=== PATIENT | female | born 1990 | race American Indian/Alaskan Native ===

== ENCOUNTER 2017-09-26 01:16 | Emergency (ER) | payer OTHER ==
[2017-09-26] MEDS ORDERED: Ketorolac 30 MG/ML SDV IM ONE (01:30)
--- NOTE | 2017-09-26 01:36 | EDM.PDOC ---
ED HPI GENERAL MEDICAL PROBLEM - General Chief Complaint: Back Pain or Injury Stated Complaint: BAD BACK PAIN [id number] Time Seen by Provider: 09/26/17 01:30 Source of Information: Reports: Patient History Limitations: Reports: No Limitations - History of Present Illness INITIAL COMMENTS - FREE TEXT/NARRATIVE: onset right TL area back pain thursday, aleve seem to help some but tonight got worse hard to move around. denies straining, denies urinary Sx. Right Lower Back Pain Score (Numeric/FACES): 6 - Related Data Allergies Allergy/AdvReac Type Severity Reaction Status Date / Time venom-honey bee Allergy Swelling Verified 12/20/15 19:46 [bee venom (honey bee)] Home Meds: Home Meds Albuterol [Ventolin HFA] 2 puff INH Q4H PRN 02/18/14 [History] Sertraline [Zoloft] 100 mg PO DAILY 12/20/15 [History] Past Medical History Respiratory History: Reports: Asthma Musculoskeletal History: Reports: Fracture Psychiatric History: Reports: Depression Dermatologic History: Reports: Eczema - Infectious Disease History Infectious Disease History: Reports: Chicken Pox - Past Surgical History HEENT Surgical History: Reports: Tonsillectomy ED ROS GENERAL - Review of Systems Review Of Systems: ROS reveals no pertinent complaints other than HPI. ED EXAM,LOWER BACK PAIN/INJURY - Physical Exam Exam: See Below Exam Limited By: No Limitations General Appearance: Alert, WD/WN, Mild Distress, Other (tearful) Ears: Hearing Grossly Normal Throat/Mouth: Normal Voice, No Airway Compromise Head: Atraumatic Neck: Non-Tender, Full Range of Motion Respiratory/Chest: No Respiratory Distress Cardiovascular: Regular Rate, Rhythm GI/Abdominal: Soft, Non-Tender Back Exam: Muscle Spasm, Paraspinal Tenderness, Other (left L3-4-5 without radiculitis, gait limited to pain) Neurological: Alert, No Motor/Sensory Deficits, Oriented x 3 Psychiatric: Tearful Skin Exam: Warm, Dry, Normal Color Lymphatic: No Adenopathy Course - Vital Signs Last Recorded V/S: Last Vital Signs Temp 35.7 C 09/26/17 01:28 Pulse 84 09/26/17 01:28 Resp 18 09/26/17 01:28 BP 156/117 H 09/26/17 01:28 Pulse Ox 100 09/26/17 01:28 - Orders/Labs/Meds Meds: Medications Discontinued Medications Generic Name Dose Route Start Last Admin Trade Name Chun PRN Reason Stop Dose Admin Ketorolac Tromethamine 30 mg 09/26/17 01:30 09/26/17 01:41 Toradol IM 09/26/17 01:31 30 mg ONETIME ONE Administration - Re-Assessments/Exams Free Text/Narrative Re-Assessment/Exam: 09/26/17 02:07 re-exam; s/p IM toradol = much better Departure - Departure Time of Disposition: 02:08 Disposition: Home, Self-Care 01 Condition: Good Clinical Impression: Lumbar paraspinal muscle spasm - Discharge Information Instructions: Muscle Cramps and Spasms, [id number] Forms: ED Department Discharge Additional Instructions: 1) avoid bending lifting straining next 4 days 2) try heat or ice to sore areas 3) see clinic for PHYSICAL THERAPY REFERRAL rx given; flexeril 10mg bid prn x 12
[2017-09-26 01:41] VITALS: BP 156/117
== END 2017-09-26 02:17 | disposition home or self-care (01) ==
LOC: DL.ED 01:16
DX: M62.830 Muscle spasm of back (principal); Z91.030 Bee allergy status; Z79.899 Other long term (current) drug therapy
CPT/HCPCS: 96372; 99283; J1885

== ENCOUNTER 2017-09-27 23:33 | Emergency (ER) | payer OTHER ==
[2017-09-27] MEDS ORDERED: Cyclobenzaprine 10 MG Tab PO ONE (23:34)
[2017-09-27 23:54] VITALS: BP 118/76
[2017-09-28] MEDS ORDERED: Ketorolac 30 MG/ML SDV IM ONE (00:03)
--- NOTE | 2017-09-28 00:11 | EDM.PDOC ---
ED HPI GENERAL MEDICAL PROBLEM - General Chief Complaint: Back Pain or Injury Stated Complaint: SEVERE BACK PAIN [id number] Time Seen by Provider: 09/28/17 00:04 Source of Information: Reports: Patient History Limitations: Reports: No Limitations - History of Present Illness INITIAL COMMENTS - FREE TEXT/NARRATIVE: here last night for same but unable to fill rx. 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 Right Lower Back Pain Score (Numeric/FACES): 9 - Related Data Allergies Allergy/AdvReac Type Severity Reaction Status Date / Time venom-honey bee Allergy Swelling Verified 12/20/15 19:46 [bee venom (honey bee)] Home Meds: Home Meds Albuterol [Ventolin HFA] 2 puff INH Q4H PRN 02/18/14 [History] Sertraline [Zoloft] 100 mg PO DAILY 12/20/15 [History] Past Medical History Respiratory History: Reports: Asthma Musculoskeletal History: Reports: Fracture Psychiatric History: Reports: Depression Dermatologic History: Reports: Eczema - Infectious Disease History Infectious Disease History: Reports: Chicken Pox - Past Surgical History HEENT Surgical History: Reports: Tonsillectomy Social & Family History - Tobacco Use Smoking Status *Q: Never Smoker - Caffeine Use Caffeine Use: Reports: Soda - Recreational Drug Use Recreational Drug Use: No ED ROS GENERAL - Review of Systems Review Of Systems: ROS reveals no pertinent complaints other than HPI. ED EXAM,LOWER BACK PAIN/INJURY - Physical Exam Exam: See Below Exam Limited By: No Limitations General Appearance: Alert, WD/WN, Mild Distress, Other (crying) Eye Exam: Bilateral Eye: PERRL (pupils ER @ 4mm) Ears: Hearing Grossly Normal Throat/Mouth: Normal Voice, No Airway Compromise Head: Atraumatic Neck: Non-Tender, Full Range of Motion Respiratory/Chest: No Respiratory Distress Cardiovascular: Regular Rate, Rhythm GI/Abdominal: Soft, Non-Tender Back Exam: Muscle Spasm, Paraspinal Tenderness, Other (L4-5-S1 without radiulitis) Neurological: Alert, No Motor/Sensory Deficits, Oriented x 3, Other (gait limited to pain) Psychiatric: Tearful Skin Exam: Warm, Dry, Normal Color Lymphatic: No Adenopathy Course - Vital Signs Last Recorded V/S: Last Vital Signs Temp Pulse 76 09/27/17 23:40 Resp 19 09/27/17 23:40 BP 118/76 09/27/17 23:40 Pulse Ox 100 09/27/17 23:40 - Orders/Labs/Meds Orders: Active Orders 24 hr Category Date Time Status Ketorolac [Toradol] Med 09/28/17 00:03 Once 30 mg IM ONETIME ONE Departure - Departure Time of Disposition: 00:13 Disposition: Home, Self-Care 01 Condition: Good Clinical Impression: Lumbar paraspinal muscle spasm - Discharge Information Additional Instructions: 1) avoid bending lifting straining 2) follow up at clinic - My Orders Last 24 Hours: My Active Orders 09/28/17 00:03 Ketorolac [Toradol] 30 mg IM ONETIME ONE - Assessment/Plan Last 24 Hours: My Active Orders 09/28/17 00:03 Ketorolac [Toradol] 30 mg IM ONETIME ONE
[2017-09-28] MEDS ORDERED: Cyclobenzaprine 10 MG Tab ONE (00:15)
[2017-09-28] MEDS ORDERED: Cyclobenzaprine 10 MG Tab PO ONE (00:54)
== END 2017-09-28 01:05 | disposition home or self-care (01) ==
LOC: DL.ED 23:33
DX: M62.830 Muscle spasm of back (principal); Z91.030 Bee allergy status; Z79.899 Other long term (current) drug therapy
CPT/HCPCS: 96372; 99283; A9270; J1885

== ENCOUNTER 2020-11-21 14:08 | Emergency (ER) | payer OTHER ==
[2020-11-21 14:30] VITALS: BP 148/77; PULSE 73
[2020-11-21 16:01] LABS: ANION GAP 13.9 mEq/L (7-13); CHLORIDE,CL 101 mmol/L (98-107); SODIUM,NA 141 mmol/L (136-145)
--- NOTE | 2020-11-21 17:09 | CR ---
PROCEDURE INFORMATION: Exam: XR Right Knee Exam date and time: 11/21/2020 4:31 PM Age: 30 years old Clinical indication: Pain; Knee; Right; Additional info: Right knee pain TECHNIQUE: Imaging protocol: XR Right knee. Views: 1 or 2 views. COMPARISON: No relevant prior studies available. FINDINGS: Bones/joints: Suboptimal lateral projection. Dislocation not excluded in setting of trauma. Mild degenerative changes seen. No displaced fracture. Soft tissues: Normal. IMPRESSION: Limited study. Dislocation not excluded. Follow-up imaging once the patient can tolerate the exam is recommended.
--- NOTE | 2020-11-21 17:10 | CR ---
PROCEDURE INFORMATION: Exam: XR Lumbosacral Spine Exam date and time: 11/21/2020 4:26 PM Age: 30 years old Clinical indication: Low back pain; Additional info: Low back pain, no known injury TECHNIQUE: Imaging protocol: XR of the lumbosacral spine. Views: 2 or 3 views. COMPARISON: No relevant prior studies available. FINDINGS: Bones/joints: Vertebral body heights are maintained. Mild multilevel degenerative disc disease and facet arthropathy. Large anterior osteophytes in the lower thoracic spine. Soft tissues: Unremarkable. IMPRESSION: Mild multilevel degenerative spondylopathy
--- NOTE | 2020-11-21 17:12 | CR ---
PROCEDURE INFORMATION: Exam: XR Left Hip Exam date and time: 11/21/2020 4:28 PM Age: 30 years old Clinical indication: Hip pain; Left hip; Additional info: Left hip pain TECHNIQUE: Imaging protocol: XR Left hip. Views: 2 or 3 views hip with pelvis when performed. COMPARISON: No relevant prior studies available. FINDINGS: Bones/joints: No fracture. No malalignment. Some mild degenerative changes are seen in the hip joints and SI joints. Soft tissues: Unremarkable. IMPRESSION: Early degenerative changes noted
--- NOTE | 2020-11-21 17:22 | EDM.PDOC ---
Scribed by Fabiana Jackson 11/21/20 1721 for Shola Tinajero MD ED HPI GENERAL MEDICAL PROBLEM - General Chief Complaint: Lower Extremity Injury/Pain Stated Complaint: SHARP SHOOTING PAINS IN LEGS Time Seen by Provider: 11/21/20 15:30 Source of Information: Reports: Patient History Limitations: Reports: No Limitations - History of Present Illness INITIAL COMMENTS - FREE TEXT/NARRATIVE: 30 y/o F c/o R knee pain, and Left hip pain that begins in the left buttocks and wraps around to the anterior thigh. Symptoms began this morning. Pt has had episodes where she has had pain in her shoulders for several days and then the pain will subside on its own and then she will develop pain in a wrist that again lasts days and then subsides. No hx of RA or other inflammatory diseases. Denies fever, cough, chills, drugs, etoh, recent trauma. Duration: Hour(s): Location: Reports: Lower Extremity, Left, Lower Extremity, Right Quality: Reports: Burning, Sharp Severity: Moderate Improves with: Reports: None Worsens with: Reports: None Associated Symptoms: Reports: No Other Symptoms - Related Data Allergies Allergy/AdvReac Type Severity Reaction Status Date / Time venom-honey bee Allergy Swelling Verified 12/20/15 19:46 [bee venom (honey bee)] Home Meds: Home Meds Albuterol [Ventolin HFA] 2 puff INH Q4H PRN 02/18/14 [History] Sertraline [Zoloft] 100 mg PO DAILY 12/20/15 [History] Past Medical History Respiratory History: Reports: Asthma Musculoskeletal History: Reports: Fracture Psychiatric History: Reports: Depression Dermatologic History: Reports: Eczema - Infectious Disease History Infectious Disease History: Reports: Chicken Pox - Past Surgical History HEENT Surgical History: Reports: Tonsillectomy Social & Family History - Tobacco Use Tobacco Use Status *Q: Unknown Ever Used Tobacco - Caffeine Use Caffeine Use: Reports: None Review of Systems - Review of Systems Review Of Systems: See Below ED EXAM, GENERAL - Physical Exam Exam: See Below Exam Limited By: No Limitations General Appearance: Alert Respiratory/Chest: No Respiratory Distress, Lungs Clear, Normal Breath Sounds, No Accessory Muscle Use, Chest Non-Tender Cardiovascular: Normal Peripheral Pulses, Regular Rate, Rhythm, No Edema, No Gallop, No JVD, No Murmur, No Rub Extremities: Normal Inspection, Other (tenderness over the L sacral illiac joint and anterior left thigh. Tenderness over the R knee with no obviou swelling redness or deformity) Course - Vital Signs Last Recorded V/S: Last Vital Signs Temp 97.2 F 11/21/20 14:29 Pulse 73 11/21/20 14:29 Resp 24 H 11/21/20 14:29 BP 148/77 H 11/21/20 14:29 Pulse Ox 98 11/21/20 14:29 - Orders/Labs/Meds Labs: Laboratory Tests 11/21/20 11/21/20 Range/Units 15:37 15:37 WBC 11.3 H (5.0-10.0) 10^3/uL RBC 5.29 (4.2-5.4) 10^6/uL Hgb 14.4 (12.0-16.0) g/dL Hct 45.6 (37.0-47.0) % MCV 86.2 D (80-100) fL MCH 27.2 (27.0-34.0) pg MCHC 31.6 L (33.0-35.0) g/dL Plt Count 342 (150-450) 10^3/uL Neut % (Auto) 79.6 H (42.2-75.2) % Lymph % (Auto) 13.9 L (20.5-50.1) % [place] % (Auto) 4.6 (2-8) % Eos % (Auto) 1.7 (1.0-3.0) % Baso % (Auto) 0.2 (0.0-1.0) % Sodium 141 (136-145) mmol/L Potassium 3.9 (3.5-5.1) mmol/L Chloride 101 (98-107) mmol/L Carbon Dioxide 30 (21-32) mmol/L Anion Gap 13.9 H (7-13) mEq/L BUN 9 (7-18) mg/dL Creatinine 0.78 (0.55-1.02) mg/dL Est Cr Clr Drug Dosing 111.22 mL/min Estimated GFR (MDRD) > 60 BUN/Creatinine Ratio 11.5 (No establ ref range) Glucose 97 (70-99) mg/dL Calcium 8.5 (8.5-10.1) mg/dL Total Bilirubin 0.5 (0.2-1.0) mg/dL AST 20 (15-37) U/L ALT 42 (14-59) U/L Alkaline Phosphatase 82 (46-116) U/L C-Reactive Protein 5.2 H (0.0-0.9) mg/dL Total Protein 7.8 (6.4-8.2) g/dL Albumin 3.1 L (3.4-5.0) g/dL Globulin 4.7 Albumin/Globulin Ratio 0.66 HCG, Qual Negative Departure - Departure Time of Disposition: 17:19 Disposition: Home, Self-Care 01 Condition: Good Clinical Impression: Arthralgia Qualifiers: Joint pain location: other joint Qualified Code(s): M25.59 - Pain in other specified joint - Discharge Information *PRESCRIPTION DRUG MONITORING PROGRAM REVIEWED*: Not Applicable *COPY OF PRESCRIPTION DRUG MONITORING REPORT IN PATIENT SPENCER: Not Applicable Instructions: Joint Pain, [id number] Forms: ED Department Discharge Additional Instructions: Rx: Prednisone 20mg Follow up in clinic next week and inform your doctor that your CRP lab was elevated at 5.2. Ask your doctor about a rheumatologic work up. Sepsis Event Note (ED) - Focused Exam Vital Signs: Vital Signs Temp Pulse Resp BP Pulse Ox 11/21/20 14:29 97.2 F 73 24 H 148/77 H 98 I have read and agree with the documentation that has been completed regarding this visit. By signing this record, I attest that the documentation was completed in my physical presence and is an accurate record of the encounter.
== END 2020-11-21 17:33 | disposition home or self-care (01) ==
LOC: DL.ED 14:08
DX: M25.561 Pain in right knee (principal); M79.652 Pain in left thigh; M53.3 Sacrococcygeal disorders, not elsewhere classified; Z91.030 Bee allergy status
CPT/HCPCS: 36415; 72100; 73560-RT; 80053; 84703; 85025; 86140; 99283-25; 99284

== ENCOUNTER 2020-11-21 22:37 | Emergency (ER) | payer OTHER ==
[2020-11-21 23:19] VITALS: BP 128/75; PULSE 77
[2020-11-22] MEDS ORDERED: Ketorolac 30 MG/ML SDV IM ONE (00:45)
--- NOTE | 2020-11-22 00:54 | EDM.PDOC ---
ED HPI GENERAL MEDICAL PROBLEM - General Chief Complaint: Lower Extremity Injury/Pain Stated Complaint: SHARP PAIN IN LEGS Time Seen by Provider: 11/22/20 00:40 Source of Information: Reports: Patient History Limitations: Reports: No Limitations - History of Present Illness INITIAL COMMENTS - FREE TEXT/NARRATIVE: This 30 yo female patient reports to the ED with continued left lateral hip and thigh pain. The patient reports she has been seen in the ED yesterday with similar symptoms. The patient was started on Prednisone and took ibuprofen last night at about 1800 with no symptom improvement. The patient reports she attempted to get an appointment with her primary care facility, but was not able to get an appointment until Thursday. The patient reports her pain is currently a "burning", "sharp" pain to her left lateral hip and thigh. 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(s) Left Upper Leg Pain Score (Numeric/FACES): 9 - Related Data Allergies Allergy/AdvReac Type Severity Reaction Status Date / Time venom-honey bee Allergy Swelling Verified 11/21/20 23:24 [bee venom (honey bee)] Home Meds: Home Meds Albuterol [Ventolin HFA] 2 puff INH Q4H PRN 02/18/14 [History] Ibuprofen 200 mg PO ASDIRECTED PRN 11/21/20 [History] predniSONE [Prednisone] 20 mg PO TID 11/21/20 [History] Past Medical History Respiratory History: Reports: Asthma Musculoskeletal History: Reports: Fracture Psychiatric History: Reports: Depression Dermatologic History: Reports: Eczema - Infectious Disease History Infectious Disease History: Reports: Chicken Pox - Past Surgical History HEENT Surgical History: Reports: Tonsillectomy Social & Family History - Family History Family Medical History: No Pertinent Family History - Tobacco Use Tobacco Use Status *Q: Unknown Ever Used Tobacco - Caffeine Use Caffeine Use: Reports: Soda - Recreational Drug Use Recreational Drug Use: No Review of Systems - Review of Systems Review Of Systems: Comprehensive ROS is negative, except as noted in HPI. ED EXAM, GENERAL - Physical Exam Exam: See Below Exam Limited By: No Limitations General Appearance: Alert, WD/WN, Moderate Distress, Obese Eye Exam: Bilateral Eye: EOMI, Normal Inspection, PERRL Ears: Normal External Exam, Normal Canal, Hearing Grossly Normal, Normal TMs Nose: Normal Inspection, Normal Mucosa, No Blood Throat/Mouth: Normal Inspection, Normal Lips, Normal Teeth, Normal Gums, Normal Oropharynx, Normal Voice, No Airway Compromise Head: Atraumatic, Normocephalic Neck: Normal Inspection, Supple, Non-Tender, Full Range of Motion Respiratory/Chest: No Respiratory Distress, Lungs Clear, Normal Breath Sounds, No Accessory Muscle Use, Chest Non-Tender Cardiovascular: Normal Peripheral Pulses, Regular Rate, Rhythm, No Edema, No Gallop, No JVD, No Murmur, No Rub GI/Abdominal: Normal Bowel Sounds, Soft, Non-Tender, No Organomegaly, No Distention, No Abnormal Bruit, No Mass (Female) Exam: Deferred Rectal (Female) Exam: Deferred Back Exam: Normal Inspection, Full Range of Motion, NT Extremities: Leg Pain (left lateral leg and thigh pain) Neurological: Alert, Oriented, CN II-XII Intact, Normal Cognition, Normal Gait, Normal Reflexes, No Motor/Sensory Deficits Psychiatric: Normal Affect, Normal Mood Skin Exam: Warm, Dry, Intact, Normal Color, No Rash Lymphatic: No Adenopathy Course - Vital Signs Last Recorded V/S: Last Vital Signs Temp 97.6 F 11/21/20 23:00 Pulse 77 11/21/20 23:00 Resp 19 11/21/20 23:00 BP 128/75 11/21/20 23:00 Pulse Ox 97 11/21/20 23:00 - Orders/Labs/Meds Meds: Medications Discontinued Medications Generic Name Dose Route Start Last Admin Trade Name Freq PRN Reason Stop Dose Admin Ketorolac Tromethamine 60 mg 11/22/20 00:45 Ketorolac 30 Mg/Ml Sdv IM 11/22/20 00:46 ONETIME ONE Departure - Departure Time of Disposition: 00:55 Disposition: Home, Self-Care 01 Condition: Fair Clinical Impression: Arthralgia of left thigh - Discharge Information *PRESCRIPTION DRUG MONITORING PROGRAM REVIEWED*: Not Applicable *COPY OF PRESCRIPTION DRUG MONITORING REPORT IN PATIENT SPENCER: Not Applicable Care Plan Goals: The patient was advised of the examination results during the visit. The patient was given an injection of Toradol (60 mg) while in the ED. The patient was discharged with a script for Toradol (10 mg) #20 to take 1 by mouth every 6 hours. The patient was encouraged to continue to take the Prednisone as prescribed. The patient agreed to follow-up with her primary care facility early next week as scheduled. If the patient has any additional symptoms or concerns, the patient should either return to the emergency department or visit her primary care facility. Sepsis Event Note (ED) - Evaluation Sepsis Screening Result: No Definite Risk - Focused Exam Vital Signs: Vital Signs Temp Pulse Resp BP Pulse Ox 11/21/20 23:00 97.6 F 77 19 128/75 97
== END 2020-11-22 01:17 | disposition home or self-care (01) ==
LOC: DL.ED 22:37
DX: M79.652 Pain in left thigh (principal); Z91.030 Bee allergy status
CPT/HCPCS: 96372; 99283; J1885

== ENCOUNTER 2022-07-04 16:56 | Emergency (ER) | payer OTHER ==
[2022-07-04] MEDS ORDERED: GI Cocktail Oral Solution 30 ML PO ONE (17:12)
[2022-07-04 17:18] VITALS: BP 120/90; PULSE 90
[2022-07-04 17:47] LABS: ANION GAP 15.6 mEq/L (7-13); CHLORIDE,CL 102 mmol/L (98-107); ESTIMATED GFR 84 mL/min (>=60); SODIUM,NA 138 mmol/L (136-145)
== END 2022-07-04 18:00 | disposition home or self-care (01) ==
LOC: DL.ED 16:56
DX: K21.9 Gastro-esophageal reflux disease without esophagitis (principal); Z91.030 Bee allergy status
CPT/HCPCS: 36415; 71046; 80053; 81003; 84484; 84703; 85025; 93005; 99285; A9270; 93010; 99284